=== PATIENT | male | born 1995 | race African-American/Black ===

== ENCOUNTER 2016-10-14 21:01 | Emergency (ER) | payer OTHER ==
[~2016-10-14] VITALS: Ht 177.8 cm; Wt 70.3 kg
--- NOTE | ~2016-10-14 | EKG ---
PATIENT: QUIRINO HERNANDEZ UNIT #: [id number] Ventricular Rate: 60 BPM Atrial Rate: 60 BPM P-R Interval: 158 ms QRS Duration: 86 ms Q-T Interval: 394 ms QTC Calculation(Bezet): 394 ms P Morrow: 74 degrees Calculated R Morrow: 89 degrees Calculated T Morrow: 67 degrees Diagnosis Line: Normal sinus rhythm with sinus arrhythmia Diagnosis Line: Normal ECG Diagnosis Line: When compared with ECG of 12-JUN-2014 20:17, Diagnosis Line: Questionable change in QRS axis Diagnosis Line: QT has shortened Diagnosis Line: Confirmed by DEVAN MORRISON MD ([id number]) on Diagnosis Line: 10/16/2016 8:23:43 AM INTERPRETING MD: TAMIKO JENSEN
--- NOTE | ~2016-10-14 | CR63 ---
[facility]. [facility] A Service of [facility] / [facility] RADIOLOGY TEXT RESULTS PATIENT: QUIRINO HERNANDEZ LOCATION: SED : [birth year] UNIT #: [id number] AGE: [address]: Fidelina Hartmann MD SEX: M ORDER DR: [id number] [address] [address] [id number] MR#: [id number] Acc #: [id number] NAME: QUIRINO HERNANDEZ : 1995 SEX: M STUDY DATE/TIME: 10/14/2016 21:15 UNIT: SED ROOM: STUDY DESCRIPTION: CR Chest 2 View Attending Physician: Fidelina Hartmann M.D. Ordering Physician: Fidelina Hartmann M.D. Primary Care Physician: Primary Care Physician No MEDICAL IMAGING REPORT This report is preliminary unless electronic signature is present. EXAM Chest PA and lateral, 10/14/2016 HISTORY Shortness of breath, mid chest pain, pleuritic chest pain for 2 days. No known injury. FINDINGS PA and lateral examination of the chest upright shows a good expansion of the parenchyma with a normal distribution of the pulmonary vascularity. There is no indication of congestion, effusion, infiltrate, tumor, or nodular density. The pleural reflections and diaphragmatic contours are normal. The cardiac silhouette and mediastinal anatomy is within normal limits. IMPRESSION Normal chest. Dictated by... Galen Yuen M.D. THIS IS AN ELECTRONICALLY VERIFIED REPORT Galen Yuen M.D. at 10/15/2016 2:16 PM MASON/danae TD: 10/15/2016 10:57 JOB #: [id number] MEDICAL IMAGING REPORT Page 1 of 1
[~2016-10-14 21:01] MED LIST: ABILIFY; CORICIDIN HBP F1 TAB PO; DOXYCYCLINE HY100 M1 PO; LITHIUM CARBON600 MG PO; MUCINEX DM ER1 EACH PO; NAPROSYN500 MG PO; NAPROXEN PO; THORAZINE25 MG PO; UNKNOWN MEDS; ZITHROMAX PO; [UNRECOGNIZED DRUG - OTHER] PO
[2016-10-14] MEDS ORDERED: ALBUTEROL17 GM INH (21:39)
[2016-10-14] MEDS ORDERED: IBUPROFEN PO (21:39)
== END 2016-10-14 21:51 | disposition home or self-care (01) ==
LOC: SED 21:01
DX: R09.1 Pleurisy (principal); F17.200 Nicotine dependence, unspecified, uncomplicated
CPT/HCPCS: 71020; 93005; 99285